=== PATIENT | male | born 1985 | race Hispanic/Latino ===

== ENCOUNTER 2020-03-25 14:18 | Inpatient (IN) | payer MEDICARE ==
--- NOTE | 2020-03-25 15:04 | Emergency Department Report ---
HPI - General Chief Complaint: Altered Mental Status Time Seen by Provider: 03/25/20 14:40 - HPI HPI: This is a 34-year-old male who presents to the emergency department via EMS from [facility] for altered mental status. Patient has a history of schizophrenia and developmental delay. He is currently there involuntarily secondary to auditory hallucinations and self-harm. 1 of the staff members for [facility], who is familiar with this patient, is currently at bedside and says that he does have some history with speech difficulty. However when he first arrived a few days ago the patient was much more conversive, ambulatory an d "he was even doing some push-ups." Since yesterday, and worse today, the patient has essentially been nonverbal and has not been moving much. The patient does answer some of my questions but is very slow to respond. He is currently a poor historian. 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 HENT: Normocephalic. Atraumatic. Patient has moist mucous membranes. EYES: Extraocular motions are intact. Pupils equal reactive to light bilaterally. NECK: Supple. Trachea is midline. CHEST/LUNGS: Clear to auscultation. There is no respiratory distress noted. HEART/CARDIOVASCULAR: Regular. There is mild to moderate tachycardia. There is no murmur. ABDOMEN: Abdomen is soft, nontender. Patient has normal bowel sounds. There is no abdominal distention. SKIN: Skin is warm and dry. NEURO: Patient is awake and follows some commands. He is slow to respond. Withdraws from painful stimuli. MUSCULOSKELETAL: There is no tenderness or deformity. There is no limitation range of motion. ED Course Vital Signs 03/25/20 14:28 Temperature 99.5 F Pulse Rate 120 H Respiratory 16 Rate Blood Pressure 126/75 O2 Sat by Pulse 99 Oximetry - Reevaluation(s) Reevaluation #1: 03/25/20 18:19 Lab Results 03/25/20 03/25/20 03/25/20 Range/Units 15:30 15:30 15:30 WBC 12.0 H (4.5-11.0) K/mm3 RBC 4.71 (3.65-5.03) M/mm3 Hgb 14.2 (11.8-15.2) gm/dl Hct 41.0 (35.5-45.6) % MCV 87 (84-94) fl MCH 30 (28-32) pg MCHC 35 H (32-34) % RDW 12.5 L (13.2-15.2) % Plt Count 174 (140-440) K/mm3 Lymph % (Auto) 11.3 L (13.4-35.0) % [place] % (Auto) 14.7 H (0.0-7.3) % Eos % (Auto) 0.0 (0.0-4.3) % Baso % (Auto) 0.4 (0.0-1.8) % Lymph # 1.4 (1.2-5.4) K/mm3 [place] # 1.8 H (0.0-0.8) K/mm3 Eos # 0.0 (0.0-0.4) K/mm3 Baso # 0.0 (0.0-0.1) K/mm3 Seg Neutrophils % 73.6 H (40.0-70.0) % Seg Neutrophils # 8.8 H (1.8-7.7) K/mm3 Sodium 134 L (137-145) mmol/L Potassium 3.8 (3.6-5.0) mmol/L Chloride 94.8 L (98-107) mmol/L Carbon Dioxide 25 (22-30) mmol/L Anion Gap 18 mmol/L BUN 11 (9-20) mg/dL Creatinine 0.9 (0.8-1.3) mg/dL Estimated GFR > 60 ml/min BUN/Creatinine Ratio 12 % Glucose 105 H (75-100) mg/dL Calcium 9.4 (8.4-10.2) mg/dL Total Bilirubin 0.60 (0.1-1.2) mg/dL AST 141 H (5-40) units/L ALT 47 (7-56) units/L Alkaline Phosphatase 63 (35-129) units/L Ammonia 30.0 (25-60) umol/L Total Creatine Kinase 6716 H (55-170) units/L Total Protein 6.4 (6.3-8.2) g/dL Albumin 4.0 (3.9-5) g/dL Albumin/Globulin Ratio 1.7 % TSH (0.270-4.200) mlU/mL Plasma/Serum Alcohol (0-0.07) % 03/25/20 03/25/20 Range/Units 15:30 15:30 WBC (4.5-11.0) K/mm3 RBC (3.65-5.03) M/mm3 Hgb (11.8-15.2) gm/dl Hct (35.5-45.6) % MCV (84-94) fl MCH (28-32) pg MCHC (32-34) % RDW (13.2-15.2) % Plt Count (140-440) K/mm3 Lymph % (Auto) (13.4-35.0) % [place] % (Auto) (0.0-7.3) % Eos % (Auto) (0.0-4.3) % Baso % (Auto) (0.0-1.8) % Lymph # (1.2-5.4) K/mm3 [place] # (0.0-0.8) K/mm3 Eos # (0.0-0.4) K/mm3 Baso # (0.0-0.1) K/mm3 Seg Neutrophils % (40.0-70.0) % Seg Neutrophils # (1.8-7.7) K/mm3 Sodium (137-145) mmol/L Potassium (3.6-5.0) mmol/L Chloride (98-107) mmol/L Carbon Dioxide (22-30) mmol/L Anion Gap mmol/L BUN (9-20) mg/dL Creatinine (0.8-1.3) mg/dL Estimated GFR ml/min BUN/Creatinine Ratio % Glucose (75-100) mg/dL Calcium (8.4-10.2) mg/dL Total Bilirubin (0.1-1.2) mg/dL AST (5-40) units/L ALT (7-56) units/L Alkaline Phosphatase (35-129) units/L Ammonia (25-60) umol/L Total Creatine Kinase (55-170) units/L Total Protein (6.3-8.2) g/dL Albumin (3.9-5) g/dL Albumin/Globulin Ratio % TSH 2.050 (0.270-4.200) mlU/mL Plasma/Serum Alcohol < 0.01 (0-0.07) % ED Medical Decision Making - Lab Data Result diagrams: 03/25/20 15:30 03/25/20 15:30 - EKG Data -: EKG Interpreted by Me EKG shows normal: sinus rhythm, axis, intervals, QRS complexes, ST-T waves Rate: normal - EKG Data When compared to previous EKG there are: previous EKG unavailable Interpretation: normal EKG - Radiology Data Radiology results: report reviewed CT BRAIN: 03/25/2020 INDICATION / CLINICAL INFORMATION: Altered mental status. COMPARISON: None available. FINDINGS: BRAIN/INTRACRANIAL STRUCTURES: Unenhanced CT images of the brain demonstrate no evidence of acute intracranial abnormality. Ventricles and sulci are normal in size and shape. There is no evidence of hemorrhage or mass. There are no abnormal extra-axial fluid collections. EXTRACRANIAL STRUCTURES: Unremarkable. IMPRESSION: Negative unenhanced CT of the brain. - Medical Decision Making This patient presents to the emergency department from his psychiatric facility for evaluation for decreased responsiveness, decreased oral intake and generalized altered mental status. The patient does respond to some questions and commands. He does answer some questions but is slow to respond. Later in his ED course the patient became more awake and alert and was asking for coffee. A CT scan of the head without contrast was completed that does not show any bleed, large territorial infarct, or any other acute process. EKG does not have any morphology consistent with ST elevation [place] or dysrhythmia. The patient's labs were mostly unremarkable including CBC, metabolic panel, TSH, UDS, urinalysis, but the patient does appear to have rhabdomyolysis with a creatinine kinase level of 6700. He has received a liter of IV fluid and another liter has been ordered. He will be admitted to the hospital for further evaluation and treatment and was accepted for admission by the hospitalist, Dr. Holder. Critical Care Time: No Critical care attestation.: If time is entered above; I have spent that time in minutes in the direct care of this critically ill patient, excluding procedure time. ED Disposition Clinical Impression: History of schizophrenia Rhabdomyolysis Qualifiers: Rhabdomyolysis type: non-traumatic Qualified Code(s): M62.82 - Rhabdomyolysis Altered mental status Qualifiers: Altered mental status type: unspecified Qualified Code(s): R41.82 - Altered mental status, unspecified Disposition: DC-09 OP ADMIT IP TO THIS HOSP Is pt being admited?: Yes Condition: Fair Time of Disposition: 17:47
--- NOTE | 2020-03-25 15:40 | Cat Scan Report ---
CT BRAIN: 03/25/2020 INDICATION / CLINICAL INFORMATION: Altered mental status. COMPARISON: None available. FINDINGS: BRAIN/INTRACRANIAL STRUCTURES: Unenhanced CT images of the brain demonstrate no evidence of acute int racranial abnormality. Ventricles and sulci are normal in size and shape. There is no evidence of hemorrhage or mass. There are no abnormal extra-axial fluid collections. EXTRACRANIAL STRUCTURES: Unremarkable. IMPRESSION: Negative unenhanced CT of the brain. All CT scans at this location are performed using dose reduction to ALARA by means of automated expos ure control. Signer Name: Jonathan Eng MD Signed: 03/25/2020 3:36 PM Workstation Name: [id number]
[2020-03-25] MEDS ORDERED: SODIUM CHLORIDE 0.9% 1000 ML 1,000 ML IV ONE ×2 (15:47→17:37)
[2020-03-25 15:48] LABS: Basophils % (Auto) 0.4 % (0.0-1.8); Hemoglobin 14.2 gm/dl (11.8-15.2); Lymphocytes # (Auto) 1.4 K/mm3 (1.2-5.4); Lymphocytes % (Auto) 11.3 % (13.4-35.0); Mean Corpuscular HGB Conc 35 % (32-34); Mean Corpuscular Volume 87 fl (84-94); Monocytes # (Auto) 1.8 K/mm3 (0.0-0.8); Monocytes % (Auto) 14.7 % (0.0-7.3); Platelet Count 174 K/mm3 (140-440); Red Blood Count 4.71 M/mm3 (3.65-5.03); Red Cell Distribution Width 12.5 % (13.2-15.2)
[2020-03-25 16:12] LABS: Alanine Aminotransferase 47 units/L (7-56); BUN/Creatinine Ratio 12; Blood Urea Nitrogen 11 mg/dL (9-20); Calcium 9.4 mg/dL (8.4-10.2); Hemolysis Index 9
[2020-03-25 17:25] LABS: Bilirubin,Urine NEG (Negative); Blood,Urine MOD (Negative); Color,Urine Yellow (Yellow); Protein,Urine <15 mg/dL mg/dL (Negative); RBC,Urine < 1.0 /HPF (0.0-6.0); Urobilinogen,Urine < 2.0 mg/dL (<2.0)
[2020-03-25] MEDS ORDERED: ONDANSETRON 4 MG/2 ML INJ ONE ×2 (17:27→18:28)
[2020-03-25 17:34] LABS: Amphetamine Screen,Urine Negative; Benzodiazepines Screen,Urine Negative; Cannabinoid Screen,Urine Negative; Cocaine Screen,Urine Negative; Methadone Screen,Urine Negative; Opiate Screen,Urine Negative
[2020-03-25] MEDS ORDERED: SODIUM CHLORIDE 0.9% 1000 ML 1,000 ML ONE (18:06)
[2020-03-25] MEDS ORDERED: MORPHINE 2 MG/1 ML INJ ONE (18:29)
[2020-03-25] MEDS ORDERED: MORPHINE 4 MG/1 ML INJ IV ONE (18:34)
[2020-03-25] MEDS ORDERED: ONDANSETRON 4 MG/2 ML INJ IV ONE (18:34)
[2020-03-25] MEDS ORDERED: NALOXONE 0.4 MG/1 ML INJ IV PRN (18:40)
[2020-03-25] MEDS ORDERED: ACETAMINOPHEN 325 MG TAB PO PRN (18:40)
[2020-03-25] MEDS ORDERED: ALBUTEROL 2.5 MG/3 ML NEBU IH PRN (18:40)
[2020-03-25] MEDS ORDERED: ONDANSETRON 4 MG/2 ML INJ IV PRN ×2 (18:40→18:50)
--- NOTE | 2020-03-25 18:44 | History and Physical Report ---
History of Present Illness Date of examination: 03/25/20 Date of admission: 03/25/20 17:47 Chief complaint: Paranoid schizophrenia rhabdomyolysis History of present illness: Unable to obtain any information from the patient due to paranoia all records obtained from the ED documentation. I also personally called [place] could not get any information from the nurse who kept looking for the records during my duration on the phone with her and will fax additional records over. this is a 34-year-old male who presents to the emergency department via EMS from [facility] for altered mental status. Patient has a history of schizophrenia and developmental delay. He is currently there involuntarily secondary to auditory hallucinations and self-harm. 1 of the staff members for [facility], who is familiar with this patient, is currently at bedside and says that he does have some history with speech difficulty. However when he first arrived a few days ago the patient was much more conversive, ambulatory and "he was even doing some push-ups." Since yesterday, and worse today, the patient has essentially been nonverbal and has not been moving much. The patient does answer some of my questions but is very slow to respond. He is currently a poor historian. 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) Past History Past Medical History: other (Unknown) Past Surgical History: Other (Unknown no surgical scar noted) Social history: full code, other (Psych) Family history: no significant family history Medications and Allergies Allergies Allergy/AdvReac Type Severity Reaction Status Date / Time No Known Allergies Allergy Unverified 03/25/20 14:28 Active Meds: Active Medications Acetaminophen (Tylenol) 650 mg PO Q4H PRN PRN Reason: Pain MILD(1-3)/Fever >100.5/CLEMENT Albuterol (Proventil) 2.5 mg IH Q4HRT PRN PRN Reason: Shortness Of Breath Bisacodyl (Dulcolax) 10 mg [place] QDAY PRN PRN Reason: Constipation unrelieved by MOM Famotidine (Pepcid) 20 mg IV BID LORA Lorazepam (Ativan) 1 mg IV Q4H PRN PRN Reason: Seizures Naloxone HCl (Naloxone) 0.1 mg IV Q2MIN PRN PRN Reason: Res Rate </= 8 or 02 SAT < 92% Ondansetron HCl (Zofran) 4 mg IV Q8H PRN PRN Reason: Nausea And Vomiting Senna (Senokot) 8.6 mg PO Q12HR LORA Sodium Chloride (Sodium Chloride Flush Syringe 10 Ml) 10 ml IV BID LORA Sodium Chloride (Sodium Chloride Flush Syringe 10 Ml) 10 ml IV PRN PRN PRN Reason: LINE FLUSH Review of Systems ROS unobtainable: due to mental status Exam - Physical Exam Narrative exam: VITAL SIGNS: Reviewed. GENERAL: The patient appears normally developed, diaphoretic, rigid, answers a few questions but disoriented vital signs as documented. HEAD: No signs of head trauma. EYES: Pupils are equal. Extraocular motions intact. EARS: Hearing grossly intact. MOUTH: Oropharynx is normal. NECK: No adenopathy, no JVD. CHEST: Chest with clear breath sounds bilaterally. No wheezes, rales, or rhonchi. CARDIAC: Regular rate and rhythm. S1 and S2, without murmurs, gallops, or rubs. VASCULAR: No Edema. Peripheral pulses normal and equal in all extremities. ABDOMEN: Soft, non tender and non distended. No rebound or guarding, and no masses palpated. Bowel Sounds normal. MUSCULOSKELETAL: Good range of motion of all major joints. Extremities without clubbing, cyanosis or edema. NEUROLOGIC EXAM: Awake disoriented although holds both hands in a rigid state is able to move them without much rigidity noted. Speech is garbled.. PSYCHIATRIC: Mood normal. SKIN: detail exam as documented in skin assessment - Constitutional Vitals: Temp Pulse Resp BP Pulse Ox 99.5 F 84 18 106/62 98 03/25/20 14:28 03/25/20 16:45 03/25/20 18:35 03/25/20 16:45 03/25/20 16:45 Results - Labs CBC & Chem 7: 03/25/20 15:30 03/25/20 15:30 Labs: Laboratory Last Values WBC 12.0 K/mm3 (4.5-11.0) H 03/25/20 15:30 RBC 4.71 M/mm3 (3.65-5.03) 03/25/20 15:30 Hgb 14.2 gm/dl (11.8-15.2) 03/25/20 15:30 Hct 41.0 % (35.5-45.6) 03/25/20 15:30 MCV 87 fl (84-94) 03/25/20 15:30 MCH 30 pg (28-32) 03/25/20 15:30 MCHC 35 % (32-34) H 03/25/20 15:30 RDW 12.5 % (13.2-15.2) L 03/25/20 15:30 Plt Count 174 K/mm3 (140-440) 03/25/20 15:30 Lymph % (Auto) 11.3 % (13.4-35.0) L 03/25/20 15:30 [place] % (Auto) 14.7 % (0.0-7.3) H 03/25/20 15:30 Eos % (Auto) 0.0 % (0.0-4.3) 03/25/20 15:30 Baso % (Auto) 0.4 % (0.0-1.8) 03/25/20 15:30 Lymph # 1.4 K/mm3 (1.2-5.4) 03/25/20 15:30 [place] # 1.8 K/mm3 (0.0-0.8) H 03/25/20 15:30 Eos # 0.0 K/mm3 (0.0-0.4) 03/25/20 15:30 Baso # 0.0 K/mm3 (0.0-0.1) 03/25/20 15:30 Seg Neutrophils % 73.6 % (40.0-70.0) H 03/25/20 15:30 Seg Neutrophils # 8.8 K/mm3 (1.8-7.7) H 03/25/20 15:30 Sodium 134 mmol/L (137-145) L 03/25/20 15:30 Potassium 3.8 mmol/L (3.6-5.0) 03/25/20 15:30 Chloride 94.8 mmol/L (98-107) L 03/25/20 15:30 Carbon Dioxide 25 mmol/L (22-30) 03/25/20 15:30 Anion Gap 18 mmol/L 03/25/20 15:30 BUN 11 mg/dL (9-20) 03/25/20 15:30 Creatinine 0.9 mg/dL (0.8-1.3) 03/25/20 15:30 Estimated GFR > 60 ml/min 03/25/20 15:30 BUN/Creatinine Ratio 12 % 03/25/20 15:30 Glucose 105 mg/dL (75-100) H 03/25/20 15:30 Calcium 9.4 mg/dL (8.4-10.2) 03/25/20 15:30 Total Bilirubin 0.60 mg/dL (0.1-1.2) 03/25/20 15:30 AST 141 units/L (5-40) H 03/25/20 15:30 ALT 47 units/L (7-56) 03/25/20 15:30 Alkaline Phosphatase 63 units/L (35-129) 03/25/20 15:30 Ammonia 30.0 umol/L (25-60) 03/25/20 15:30 Total Creatine Kinase 6716 units/L (55-170) H 03/25/20 15:30 Total Protein 6.4 g/dL (6.3-8.2) 03/25/20 15:30 Albumin 4.0 g/dL (3.9-5) 03/25/20 15:30 Albumin/Globulin Ratio 1.7 % 03/25/20 15:30 TSH 2.050 mlU/mL (0.270-4.200) 03/25/20 15:30 Urine Color Yellow (Yellow) 03/25/20 Unknown Urine Turbidity Clear (Clear) 03/25/20 Unknown Urine pH 6.0 (5.0-7.0) 03/25/20 Unknown Ur Specific [place] 1.009 (1.003-1.030) 03/25/20 Unknown Urine Protein <15 mg/dl mg/dL (Negative) 03/25/20 Unknown Urine Glucose (UA) Neg mg/dL (Negative) 03/25/20 Unknown Urine Ketones 20 mg/dL (Negative) 03/25/20 Unknown Urine Blood Mod (Negative) 03/25/20 Unknown Urine Nitrite Neg (Negative) 03/25/20 Unknown Urine Bilirubin Neg (Negative) 03/25/20 Unknown Urine Urobilinogen < 2.0 mg/dL (<2.0) 03/25/20 Unknown Ur Leukocyte Esterase Neg (Negative) 03/25/20 Unknown Urine WBC (Auto) 1.0 /HPF (0.0-6.0) 03/25/20 Unknown Urine RBC (Auto) < 1.0 /HPF (0.0-6.0) 03/25/20 Unknown U Epithel Cells (Auto) < 1.0 /HPF (0-13.0) 03/25/20 Unknown Urine Opiates Screen Negative 03/25/20 Unknown Urine Methadone Screen Negative 03/25/20 Unknown Ur Barbiturates Screen Negative 03/25/20 Unknown Ur Phencyclidine Scrn Negative 03/25/20 Unknown Ur Amphetamines Screen Negative 03/25/20 Unknown U Benzodiazepines Scrn Negative 03/25/20 Unknown Urine Cocaine Screen Negative 03/25/20 Unknown U Marijuana (THC) Screen Negative 03/25/20 Unknown Drugs of Abuse Note Disclamer 03/25/20 Unknown Plasma/Serum Alcohol < 0.01 % (0-0.07) 03/25/20 15:30 Hardy/IV: IV Catheter Type [Left Hand] INT / Saline Lock Assessment and Plan Assessment and plan: 34-year-old male who presents to the emergency department via EMS from [facility] for altered mental status. Patient has a history of schizophrenia and developmental delay. He is currently there involuntarily s econdary to auditory hallucinations and self-harm. 1 of the staff members for [facility], who is familiar with this patient, is currently at bedside and says that he does have some history with speech difficulty. However when he first arrived a few days ago the patient was much more conversive, ambulatory and "he was even doing some push-ups." Since yesterday, and worse today, the patient has essentially been nonverbal and has not been moving much. The patient does answer some of my questions but is very slow to respond. He is currently a poor historian. CT head iMPRESSION: Negative unenhanced CT of the brain Rhabdomyolysis acute Acute metabolic encephalopathy Schizophrenia with paranoia Acute psychosis with hallucination 1013 Plan Admit to MedSurg and observation Psych consult Aggressive resuscitation with fluids Resume appropriate medications from psych facility when available Monitor for any development of rigidity as this may be a sign of neuroleptic malignant syndrome Review of meds from outside sources did not show any recent use of any medication that could be serotonin inducing. Monitor temperature and vital signs every 4 hours. DVT and GI prophylaxis Advance Directives: Yes Plan of care discussed with patient/family: Yes
[2020-03-25] MEDS: ZIPRASIDONE MESYLATE 20 MG VIAL IM PRN (20:00)
[2020-03-25] MEDS: FAMOTIDINE 20 MG/2 ML INJ IV SCH (21:50)
[2020-03-25] MEDS: SENNOSIDES 8.6 MG TAB PO SCH (21:51)
[2020-03-25] MEDS: LORazepam 2 MG/ML VIAL IV PRN (23:23)
[2020-03-26] MEDS: ZIPRASIDONE MESYLATE 20 MG VIAL IM PRN (02:16)
[2020-03-26] MEDS: LORazepam 2 MG/ML VIAL IV PRN (05:40)
[2020-03-26 05:55] LABS: Basophils % (Auto) 0.1 % (0.0-1.8); Hematocrit 38.9 % (35.5-45.6); Hemoglobin 13.6 gm/dl (11.8-15.2); Lymphocytes # (Auto) 1.2 K/mm3 (1.2-5.4); Lymphocytes % (Auto) 14.9 % (13.4-35.0); Mean Corpuscular HGB Conc 35 % (32-34); Mean Corpuscular Volume 88 fl (84-94); Monocytes % (Auto) 12.3 % (0.0-7.3); Platelet Count 152 K/mm3 (140-440); Red Blood Count 4.44 M/mm3 (3.65-5.03); Red Cell Distribution Width 12.9 % (13.2-15.2)
[2020-03-26 06:21] LABS: BUN/Creatinine Ratio 13; Blood Urea Nitrogen 10 mg/dL (9-20); Calcium 9.2 mg/dL (8.4-10.2); Hemolysis Index 4
[2020-03-26] MEDS ORDERED: SODIUM CHLORIDE 0.9% 1000 ML 1,000 ML IV SCH (09:00)
[2020-03-26] MEDS: SENNOSIDES 8.6 MG TAB PO SCH ×2 (09:46→21:23)
[2020-03-26] MEDS: FAMOTIDINE 20 MG/2 ML INJ IV SCH ×2 (09:46→21:23)
--- NOTE | 2020-03-26 10:35 | Progress Note ---
Assessment and Plan Assessment and plan: 34-year-old male who presents to the emergency department via EMS from [facility] for altered mental status. Patient has a history of schizophrenia and developmental delay. He is currently there involuntarily secondary to auditory hallucinations and self-harm. 1 of the staff members for [facility], who is familiar with this patient, is currently at bedside and says that he does have some history with speech difficulty. However when he first arrived a few days ago the patient was much more conversive, ambulatory and "he was even doing some push-ups." Since yesterday, and worse today, the patient has essentially been nonverbal and has not been moving much. The patient does answer some of my questions but is very slow to respond. He is currently a poor historian. CT head iMPRESSION: Negative unenhanced CT of the brain Rhabdomyolysis acute Acute metabolic encephalopathy Schizophrenia with paranoia Acute psychosis with hallucination 1013 Plan Continue Supportive care Start IV fluids at 150cc/h Normal saline Continue 1013 Recheck CPK Psych consult Aggressive resuscitation with fluids Resume appropriate medications from psych facility when available Monitor temperature and vital signs every 4 hours. DVT and GI prophylaxis Anticipate discharge tomorrow. History Interval history: Patient seen and examined this morning continues to yell excessively. No new complaints reported by nursing staff sitter at bedside. Hospitalist Physical - Physical exam Narrative exam: VITAL SIGNS: Reviewed. GENERAL: The patient appears normally developed, more relaxed today., answers a few questions but disoriented vital signs as documented. HEAD: No signs of head trauma. EYES: Pupils are equal. Extraocular motions intact. EARS: Hearing grossly intact. MOUTH: Oropharynx is normal. NECK: No adenopathy, no JVD. CHEST: Chest with clear breath sounds bilaterally. No wheezes, rales, or rhonchi. CARDIAC: Regular rate and rhythm. S1 and S2, without murmurs, gallops, or rubs. VASCULAR: No Edema. Peripheral pulses normal and equal in all extremities. ABDOMEN: Soft, non tender and non distended. No rebound or guarding, and no masses palpated. Bowel Sounds normal. MUSCULOSKELETAL: Good range of motion of all major joints. Extremities without clubbing, cyanosis or edema. NEUROLOGIC EXAM: Awake disoriented. Speech remains garbled. PSYCHIATRIC: Mood normal. SKIN: detail exam as documented in skin assessment - Constitutional Vitals: Temp Pulse Resp BP Pulse Ox 98.9 F 76 16 105/59 96 03/25/20 21:15 03/25/20 21:15 03/25/20 21:15 03/25/20 21:15 03/25/20 21:15 Results - Labs CBC & Chem 7: 03/26/20 04:17 03/26/20 04:17 Labs: Laboratory Last Values WBC 8.2 K/mm3 (4.5-11.0) 03/26/20 04:17 RBC 4.44 M/mm3 (3.65-5.03) 03/26/20 04:17 Hgb 13.6 gm/dl (11.8-15.2) 03/26/20 04:17 Hct 38.9 % (35.5-45.6) 03/26/20 04:17 MCV 88 fl (84-94) 03/26/20 04:17 MCH 31 pg (28-32) 03/26/20 04:17 MCHC 35 % (32-34) H 03/26/20 04:17 RDW 12.9 % (13.2-15.2) L 03/26/20 04:17 Plt Count 152 K/mm3 (140-440) 03/26/20 04:17 Lymph % (Auto) 14.9 % (13.4-35.0) 03/26/20 04:17 [place] % (Auto) 12.3 % (0.0-7.3) H 03/26/20 04:17 Eos % (Auto) 0.0 % (0.0-4.3) 03/26/20 04:17 Baso % (Auto) 0.1 % (0.0-1.8) 03/26/20 04:17 Lymph # 1.2 K/mm3 (1.2-5.4) 03/26/20 04:17 [place] # 1.0 K/mm3 (0.0-0.8) H 03/26/20 04:17 Eos # 0.0 K/mm3 (0.0-0.4) 03/26/20 04:17 Baso # 0.0 K/mm3 (0.0-0.1) 03/26/20 04:17 Seg Neutrophils % 72.7 % (40.0-70.0) H 03/26/20 04:17 Seg Neutrophils # 5.9 K/mm3 (1.8-7.7) 03/26/20 04:17 Sodium 140 mmol/L (137-145) 03/26/20 04:17 Potassium 3.8 mmol/L (3.6-5.0) 03/26/20 04:17 Chloride 101.4 mmol/L (98-107) 03/26/20 04:17 Carbon Dioxide 25 mmol/L (22-30) 03/26/20 04:17 Anion Gap 17 mmol/L 03/26/20 04:17 BUN 10 mg/dL (9-20) 03/26/20 04:17 Creatinine 0.8 mg/dL (0.8-1.3) 03/26/20 04:17 Estimated GFR > 60 ml/min 03/26/20 04:17 BUN/Creatinine Ratio 13 % 03/26/20 04:17 Glucose 81 mg/dL (75-100) 03/26/20 04:17 Calcium 9.2 mg/dL (8.4-10.2) 03/26/20 04:17 Total Bilirubin 0.60 mg/dL (0.1-1.2) 03/25/20 15:30 AST 141 units/L (5-40) H 03/25/20 15:30 ALT 47 units/L (7-56) 03/25/20 15:30 Alkaline Phosphatase 63 units/L (35-129) 03/25/20 15:30 Ammonia 30.0 umol/L (25-60) 03/25/20 15:30 Total Creatine Kinase 7036 units/L (55-170) H 03/26/20 04:17 Total Protein 6.4 g/dL (6.3-8.2) 03/25/20 15:30 Albumin 4.0 g/dL (3.9-5) 03/25/20 15:30 Albumin/Globulin Ratio 1.7 % 03/25/20 15:30 TSH 2.050 mlU/mL (0.270-4.200) 03/25/20 15:30 Urine Color Yellow (Yellow) 03/25/20 Unknown Urine Turbidity Clear (Clear) 03/25/20 Unknown Urine pH 6.0 (5.0-7.0) 03/25/20 Unknown Ur Specific [place] 1.009 (1.003-1.030) 03/25/20 Unknown Urine Protein <15 mg/dl mg/dL (Negative) 03/25/20 Unknown Urine Glucose (UA) Neg mg/dL (Negative) 03/25/20 Unknown Urine Ketones 20 mg/dL (Negative) 03/25/20 Unknown Urine Blood Mod (Negative) 03/25/20 Unknown Urine Nitrite Neg (Negative) 03/25/20 Unknown Urine Bilirubin Neg (Negative) 03/25/20 Unknown Urine Urobilinogen < 2.0 mg/dL (<2.0) 03/25/20 Unknown Ur Leukocyte Esterase Neg (Negative) 03/25/20 Unknown Urine WBC (Auto) 1.0 /HPF (0.0-6.0) 03/25/20 Unknown Urine RBC (Auto) < 1.0 /HPF (0.0-6.0) 03/25/20 Unknown U Epithel Cells (Auto) < 1.0 /HPF (0-13.0) 03/25/20 Unknown Urine Opiates Screen Negative 03/25/20 Unknown Urine Methadone Screen Negative 03/25/20 Unknown Ur Barbiturates Screen Negative 03/25/20 Unknown Ur Phencyclidine Scrn Negative 03/25/20 Unknown Ur Amphetamines Screen Negative 03/25/20 Unknown U Benzodiazepines Scrn Negative 03/25/20 Unknown Urine Cocaine Screen Negative 03/25/20 Unknown U Marijuana (THC) Screen Negative 03/25/20 Unknown Drugs of Abuse Note Disclamer 03/25/20 Unknown Plasma/Serum Alcohol < 0.01 % (0-0.07) 03/25/20 15:30 Hardy/IV: Voiding Method Urinal IV Catheter Type [Left Hand] INT / Saline Lock Active Medications - Current Medications Current Medications: Generic Name Dose Route Start Last Admin Trade Name Freq PRN Reason Stop Dose Admin Acetaminophen 650 mg 03/25/20 18:40 Tylenol PO Q4H PRN Pain MILD(1-3)/Fever >100.5/CLEMENT Albuterol 2.5 mg 03/25/20 18:40 Proventil IH Q4HRT PRN Shortness Of Breath Bisacodyl 10 mg 03/25/20 18:40 Dulcolax [place] QDAY PRN Constipation unrelieved by MOM Famotidine 20 mg 03/25/20 22:00 03/26/20 09:46 Pepcid IV 20 mg BID LORA Administration Sodium Chloride 1,000 mls @ 150 mls/hr 03/26/20 09:00 Nacl 0.9% 1000 Ml IV DIRECT LORA Lorazepam 1 mg 03/25/20 18:43 03/26/20 05:40 Ativan IV 1 mg Q4H PRN Administration Seizures Naloxone HCl 0.1 mg 03/25/20 18:40 Naloxone IV Q2MIN PRN Res Rate </= 8 or 02 SAT < 92% Ondansetron HCl 4 mg 03/25/20 18:50 Zofran IV Q4H PRN Nausea And Vomiting Senna 8.6 mg 03/25/20 22:00 03/26/20 09:46 Senokot PO 8.6 mg Q12HR LORA Administration Sodium Chloride 10 ml 03/25/20 22:00 03/26/20 09:46 Sodium Chloride Flush Syringe 10 Ml IV 10 ml BID LORA Administration Sodium Chloride 10 ml 03/25/20 18:40 Sodium Chloride Flush Syringe 10 Ml IV PRN PRN LINE FLUSH
[2020-03-26] MEDS: SODIUM CHLORIDE 0.9% 1000 ML 1,000 ML IV SCH ×3 (11:30→23:56)
--- NOTE | 2020-03-26 11:42 | Consultation ---
History of Present Illness - Reason for Consult Consult date: 03/26/20 Reason for consult: paranoia - Chief Complaint Chief complaint: Paranoid schizophrenia rhabdomyolysis - History of Present Psychiatric Illness Heriberto Barney is a 34y/o male patient who presented to the emergency department via EMS from [facility] for altered mental status, according to medical record. During my interview with the patient today, he is sitting up in bed, awake. A sitter is at bedside. Upon entering the room, the patient has his right hand raised and making incomprehensible sounds. His speech is slurred and difficult to understand. He is slow to respond. His right leg shakes continuously. He at first seems reluctant to speak. The sitter hears me trying to get the patient to talk and he states, "just talk to her one time. She needs to talk to you." The patient then was able to tell me he was at the hospital. He also verbalized the month and year but did not know the date. He verbalized being "depressed." The patient says he "hears voices telling me to stab yourself. Stab yourself." The patient says he was diagnoses with "psychopathic schizophrenia." He says he takes "depakote, klonopin, and provigil." The patient denies any illicit drug use, alcohol or nicotine. PAST PSYCHIATRIC HISTORY: Diagnoses: "psychopathic schizophrenia" Suicide attempts or Self-harm behavior: Yes Prior psychiatric hospitalizations: Yes Substance Abuse history: Denies Previous psychiatric medications tried: "depakote, Klonopin and provigil" Outpatient treatment: No PAST MEDICAL HISTORY: None reported Family Psychiatric History: None reported or documented SOCIAL HISTORY Marital Status: Single Living Arrangements: with family Employment Status: Disabled Access to guns/weapons: Denies Education: History of Abuse: Denies Legal History: Denies MSE Appearance: Wearing appropriate clothing. Behavior: Appears anxious Mood: "depressed" Affect: Congruent with stated mood Thought Process: Goal directed Speech: slurred, difficult to understand, slow pace Thought Content Suicidal: Yes Homicidal: Denies Hallucinations: Auditory Delusions: none elicited Consciousness: alert. Cognition/Memory: Impaired Insight/Judgment: Limited. Diagnoses: Schizophrenia Treatment Plan Start Abilify 5mg po daily Start Depakote 125mg po BID Start Trazodone 50mg po qhs Start Klonopin 0.25mgpo BID Start melatonin 5mg po qhs prn insomnia Sitter: Defer to primary Medical: Per primary Disposition: Recommend acute inpatient psychiatric treatment Will follow. Thank you for this consult. Medications and Allergies Allergies Allergy/AdvReac Type Severity Reaction Status Date / Time No Known Allergies Allergy Unverified 03/25/20 14:28 Home Medications Medication Instructions Recorded Confirmed Last Taken Type No Known Home Medications [No 03/26/20 03/26/20 Unknown History Reported Home Medications] Active Meds: Active Medications Acetaminophen (Tylenol) 650 mg PO Q4H PRN PRN Reason: Pain MILD(1-3)/Fever >100.5/CLEMENT Albuterol (Proventil) 2.5 mg IH Q4HRT PRN PRN Reason: Shortness Of Breath Bisacodyl (Dulcolax) 10 mg [place] QDAY PRN PRN Reason: Constipation unrelieved by MOM Famotidine (Pepcid) 20 mg IV BID [facility] Last Admin: 03/26/20 09:46 Dose: 20 mg Documented by: Sodium Chloride (Nacl 0.9% 1000 Ml) 1,000 mls @ 150 mls/hr IV DIRECT LORA Sodium Chloride (Nacl 0.9% 1000 Ml) 1,000 mls @ 150 mls/hr IV DIRECT LORA Lorazepam (Ativan) 1 mg IV Q4H PRN PRN Reason: Seizures Last Admin: 03/26/20 05:40 Dose: 1 mg Documented by: Naloxone HCl (Naloxone) 0.1 mg IV Q2MIN PRN PRN Reason: Res Rate </= 8 or 02 SAT < 92% Ondansetron HCl (Zofran) 4 mg IV Q4H PRN PRN Reason: Nausea And Vomiting Senna (Senokot) 8.6 mg PO Q12HR [facility] Last Admin: 03/26/20 09:46 Dose: 8.6 mg Documented by: Sodium Chloride (Sodium Chloride Flush Syringe 10 Ml) 10 ml IV BID [facility] Last Admin: 03/26/20 09:46 Dose: 10 ml Documented by: Sodium Chloride (Sodium Chloride Flush Syringe 10 Ml) 10 ml IV PRN PRN PRN Reason: LINE FLUSH Mental Status Exam - Vital signs Last Vital Signs Temp 98.9 F 03/25/20 21:15 Pulse 76 03/25/20 21:15 Resp 16 03/25/20 21:15 BP 105/59 03/25/20 21:15 Pulse Ox 96 03/25/20 21:15 Results Result Diagrams: 03/26/20 04:17 03/26/20 04:17 Abnormal lab results 03/25/20 03/25/20 03/26/20 Range/Units 15:30 15:30 04:17 WBC 12.0 H (4.5-11.0) K/mm3 MCHC 35 H 35 H (32-34) % RDW 12.5 L 12.9 L (13.2-15.2) % Lymph % (Auto) 11.3 L (13.4-35.0) % [place] % (Auto) 14.7 H 12.3 H (0.0-7.3) % [place] # 1.8 H 1.0 H (0.0-0.8) K/mm3 Seg Neutrophils % 73.6 H 72.7 H (40.0-70.0) % Seg Neutrophils # 8.8 H (1.8-7.7) K/mm3 Sodium 134 L (137-145) mmol/L Chloride 94.8 L (98-107) mmol/L Glucose 105 H (75-100) mg/dL AST 141 H (5-40) units/L Total Creatine Kinase 6716 H (55-170) units/L 03/26/20 Range/Units 04:17 WBC (4.5-11.0) K/mm3 MCHC (32-34) % RDW (13.2-15.2) % Lymph % (Auto) (13.4-35.0) % [place] % (Auto) (0.0-7.3) % [place] # (0.0-0.8) K/mm3 Seg Neutrophils % (40.0-70.0) % Seg Neutrophils # (1.8-7.7) K/mm3 Sodium (137-145) mmol/L Chloride (98-107) mmol/L Glucose (75-100) mg/dL AST (5-40) units/L Total Creatine Kinase 7036 H (55-170) units/L All other labs normal.
[2020-03-26] MEDS ORDERED: MELATONIN 5 MG TAB PO PRN (12:06)
[2020-03-26] MEDS: ARIPiprazole 5 MG TAB PO SCH (13:00)
[2020-03-26] MEDS: clonazePAM 0.5 MG TAB PO SCH ×2 (13:00→21:23)
[2020-03-26] MEDS ORDERED: DIVALPROEX DR 250 MG TAB PO SCH (13:00)
[2020-03-26] MEDS: DIVALPROEX DR 125 MG TAB PO SCH ×2 (13:00→21:23)
[2020-03-26] MEDS: traZODone 50 MG TAB PO SCH (21:23)
[2020-03-27] MEDS: SODIUM CHLORIDE 0.9% 1000 ML 1,000 ML IV SCH ×2 (06:30→12:49)
--- NOTE | 2020-03-27 08:16 | Progress Note ---
Assessment and Plan Assessment and plan: 34-year-old male who presents to the emergency department via EMS from [facility] for altered mental status. Patient has a history of schizophrenia and developmental delay. He is currently there involuntarily secondary to auditory hallucinations and self-harm. 1 of the staff members for [facility], who is familiar with this patient, is currently at bedside and says that he does have some history with speech difficulty. However when he first arrived a few days ago the patient was much more conversive, ambulatory and "he was even doing some push-ups." Since yesterday, and worse today, the patient has essentially been nonverbal and has not been moving much. The patient does answer some of my questions but is very slow to respond. He is currently a poor historian. CT head iMPRESSION: Negative unenhanced CT of the brain Rhabdomyolysis acute Acute metabolic encephalopathy Schizophrenia with paranoia Acute psychosis with hallucination 1013 Plan Continue Supportive care CPK improved Patient is medically cleared for inpatient psych placement. Decrease NS 75m/hr Continue 1013 Recheck CPK Psych consult NOTED Aggressive resuscitation with fluids DVT and GI prophylaxis Anticipate discharge tomorrow. History Interval history: Patient seen and examined this morning continues to yell excessively. No new complaints reported by nursing staff sitter at bedside. Hospitalist Physical - Physical exam Narrative exam: VITAL SIGNS: Reviewed. GENERAL: The patient appears normally developed, more relaxed today., answers a few questions but disoriented vital signs as documented. HEAD: No signs of head trauma. EYES: Pupils are equal. Extraocular motions intact. EARS: Hearing grossly intact. MOUTH: Oropharynx is normal. NECK: No adenopathy, no JVD. CHEST: Chest with clear breath sounds bilaterally. No wheezes, rales, or rhonchi. CARDIAC: Regular rate and rhythm. S1 and S2, without murmurs, gallops, or rubs. VASCULAR: No Edema. Peripheral pulses normal and equal in all extremities. ABDOMEN: Soft, non tender and non distended. No rebound or guarding, and no masses palpated. Bowel Sounds normal. MUSCULOSKELETAL: Good range of motion of all major joints. Extremities without clubbing, cyanosis or edema. NEUROLOGIC EXAM: Awake disoriented. Speech remains garbled. PSYCHIATRIC: Mood normal. SKIN: detail exam as documented in skin assessment - Constitutional Vitals: Temp Pulse Resp BP Pulse Ox 98.2 F 72 17 113/52 94 08/30/20 04:38 03/27/20 04:38 03/27/20 04:38 03/27/20 04:38 03/27/20 04:38 Results - Labs CBC & Chem 7: 03/26/20 04:17 03/26/20 04:17 Labs: Laboratory Last Values WBC 8.2 K/mm3 (4.5-11.0) 03/26/20 04:17 RBC 4.44 M/mm3 (3.65-5.03) 03/26/20 04:17 Hgb 13.6 gm/dl (11.8-15.2) 03/26/20 04:17 Hct 38.9 % (35.5-45.6) 03/26/20 04:17 MCV 88 fl (84-94) 03/26/20 04:17 MCH 31 pg (28-32) 03/26/20 04:17 MCHC 35 % (32-34) H 03/26/20 04:17 RDW 12.9 % (13.2-15.2) L 03/26/20 04:17 Plt Count 152 K/mm3 (140-440) 03/26/20 04:17 Lymph % (Auto) 14.9 % (13.4-35.0) 03/26/20 04:17 [place] % (Auto) 12.3 % (0.0-7.3) H 03/26/20 04:17 Eos % (Auto) 0.0 % (0.0-4.3) 03/26/20 04:17 Baso % (Auto) 0.1 % (0.0-1.8) 03/26/20 04:17 Lymph # 1.2 K/mm3 (1.2-5.4) 03/26/20 04:17 [place] # 1.0 K/mm3 (0.0-0.8) H 03/26/20 04:17 Eos # 0.0 K/mm3 (0.0-0.4) 03/26/20 04:17 Baso # 0.0 K/mm3 (0.0-0.1) 03/26/20 04:17 Seg Neutrophils % 72.7 % (40.0-70.0) H 03/26/20 04:17 Seg Neutrophils # 5.9 K/mm3 (1.8-7.7) 03/26/20 04:17 Sodium 140 mmol/L (137-145) 03/26/20 04:17 Potassium 3.8 mmol/L (3.6-5.0) 03/26/20 04:17 Chloride 101.4 mmol/L (98-107) 03/26/20 04:17 Carbon Dioxide 25 mmol/L (22-30) 03/26/20 04:17 Anion Gap 17 mmol/L 03/26/20 04:17 BUN 10 mg/dL (9-20) 03/26/20 04:17 Creatinine 0.8 mg/dL (0.8-1.3) 03/26/20 04:17 Estimated GFR > 60 ml/min 03/26/20 04:17 BUN/Creatinine Ratio 13 % 03/26/20 04:17 Glucose 81 mg/dL (75-100) 03/26/20 04:17 Calcium 9.2 mg/dL (8.4-10.2) 03/26/20 04:17 Total Bilirubin 0.60 mg/dL (0.1-1.2) 03/25/20 15:30 AST 141 units/L (5-40) H 03/25/20 15:30 ALT 47 units/L (7-56) 03/25/20 15:30 Alkaline Phosphatase 63 units/L (35-129) 03/25/20 15:30 Ammonia 30.0 umol/L (25-60) 03/25/20 15:30 Total Creatine Kinase 2580 units/L (55-170) H 03/27/20 05:17 Total Protein 6.4 g/dL (6.3-8.2) 03/25/20 15:30 Albumin 4.0 g/dL (3.9-5) 03/25/20 15:30 Albumin/Globulin Ratio 1.7 % 03/25/20 15:30 TSH 2.050 mlU/mL (0.270-4.200) 03/25/20 15:30 Urine Color Yellow (Yellow) 03/25/20 Unknown Urine Turbidity Clear (Clear) 03/25/20 Unknown Urine pH 6.0 (5.0-7.0) 03/25/20 Unknown Ur Specific [place] 1.009 (1.003-1.030) 03/25/20 Unknown Urine Protein <15 mg/dl mg/dL (Negative) 03/25/20 Unknown Urine Glucose (UA) Neg mg/dL (Negative) 03/25/20 Unknown Urine Ketones 20 mg/dL (Negative) 03/25/20 Unknown Urine Blood Mod (Negative) 03/25/20 Unknown Urine Nitrite Neg (Negative) 03/25/20 Unknown Urine Bilirubin Neg (Negative) 03/25/20 Unknown Urine Urobilinogen < 2.0 mg/dL (<2.0) 03/25/20 Unknown Ur Leukocyte Esterase Neg (Negative) 03/25/20 Unknown Urine WBC (Auto) 1.0 /HPF (0.0-6.0) 03/25/20 Unknown Urine RBC (Auto) < 1.0 /HPF (0.0-6.0) 03/25/20 Unknown U Epithel Cells (Auto) < 1.0 /HPF (0-13.0) 03/25/20 Unknown Urine Opiates Screen Negative 03/25/20 Unknown Urine Methadone Screen Negative 03/25/20 Unknown Ur Barbiturates Screen Negative 03/25/20 Unknown Ur Phencyclidine Scrn Negative 03/25/20 Unknown Ur Amphetamines Screen Negative 03/25/20 Unknown U Benzodiazepines Scrn Negative 03/25/20 Unknown Urine Cocaine Screen Negative 03/25/20 Unknown U Marijuana (THC) Screen Negative 03/25/20 Unknown Drugs of Abuse Note Disclamer 03/25/20 Unknown Plasma/Serum Alcohol < 0.01 % (0-0.07) 03/25/20 15:30 Hardy/IV: Voiding Method Incontinent IV Catheter Type [Left Hand] INT / Saline Lock Active Medications - Current Medications Current Medications: Generic Name Dose Route Start Last Admin Trade Name Freq PRN Reason Stop Dose Admin Acetaminophen 650 mg 03/25/20 18:40 Tylenol PO Q4H PRN Pain MILD(1-3)/Fever >100.5/CLEMENT Albuterol 2.5 mg 03/25/20 18:40 Proventil IH Q4HRT PRN Shortness Of Breath Aripiprazole 5 mg 03/26/20 13:00 03/26/20 13:00 Aripiprazole PO 5 mg QDAY LORA Administration Bisacodyl 10 mg 03/25/20 18:40 Dulcolax [place] QDAY PRN Constipation unrelieved by MOM Clonazepam 0.25 mg 03/26/20 13:00 03/26/20 21:23 Klonopin PO 0.25 mg BID LORA Administration Divalproex Sodium 125 mg 03/26/20 13:00 03/26/20 21:[address] PO 125 mg BID LORA Administration Famotidine 20 mg 03/25/20 22:00 03/26/20 21:23 Pepcid IV 20 mg BID LORA Administration Sodium Chloride 1,000 mls @ 150 mls/hr 03/26/20 11:30 03/27/20 06:30 Nacl 0.9% 1000 Ml IV 150 mls/hr DIRECT LORA Administration Lorazepam 1 mg 03/25/20 18:43 03/26/20 05:40 Ativan IV 1 mg Q4H PRN Administration Seizures Melatonin 5 mg 03/26/20 12:06 Melatonin PO QHS PRN Sleep Naloxone HCl 0.1 mg 03/25/20 18:40 Naloxone IV Q2MIN PRN Res Rate </= 8 or 02 SAT < 92% Ondansetron HCl 4 mg 03/25/20 18:50 Zofran IV Q4H PRN Nausea And Vomiting Senna 8.6 mg 03/25/20 22:00 03/26/20 21:23 Senokot PO 8.6 mg Q12HR LORA Administration Sodium Chloride 10 ml 03/25/20 22:00 03/26/20 21:23 Sodium Chloride Flush Syringe 10 Ml IV 10 ml BID LORA Administration Sodium Chloride 10 ml 03/25/20 18:40 Sodium Chloride Flush Syringe 10 Ml IV PRN PRN LINE FLUSH Trazodone HCl 50 mg 03/26/20 22:00 03/26/20 21:23 Desyrel PO 50 mg QHS LORA Administration
--- NOTE | 2020-03-27 08:18 | Discharge Summary ---
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 Patient has a history of schizophrenia and developmental delay. He is currently there involuntarily secondary to auditory hallucinations and self-harm. 1 of the staff members for [facility], who is familiar with this patient, is currently at bedside and says that he does have some history with speech difficulty. However when he first arrived a few days ago the patient was much more conversive, ambulatory and "he was even doing some push-ups." Since yesterday, and worse today, the patient has essentially been nonverbal and has not been moving much. The patient does answer some of my questions but is very slow to respond. He is currently a poor historian. CT head iMPRESSION: Negative unenhanced CT of the brain Patient was treated with aggressive hydration. Was seen by psychiatrist diagnosed confirmed of schizophrenia psych medications initiated as described in the consultation note. Patient's rhabdomyolysis has improved and is medically stable for discharge to inpatient psych. 03/29: Patient seen and examined this morning much more awake no acute distress was actually able to articulate the changes in medication especially of Depakote for himself. He is medically stable and cleared for discharge to inpatient psych. Continue Supportive care CPK improved Patient is medically cleared for inpatient psych placement D/c klonopin Start Lorazepam 0.5mg po TID Increase Depakote 500mg po BID Rhabdomyolysis acute Acute metabolic encephalopathy Schizophrenia with paranoia Acute psychosis with hallucination 1013 . Disposition: [id number]/TX-[id number] PSY HOSP/PSY UNIT Time spent for discharge: 35 minutes Core Measure Documentation - Palliative Care Palliative Care/ Comfort Measures: Not Applicable - Core Measures Any of the following diagnoses?: none Exam - Physical Exam Narrative exam: VITAL SIGNS: Reviewed. GENERAL: The patient appears normally developed, more relaxed today. Prior noted disorientation as result vital signs as documented. HEAD: No signs of head trauma. EYES: Pupils are equal. Extraocular motions intact. EARS: Hearing grossly intact. MOUTH: Oropharynx is normal. NECK: No adenopathy, no JVD. CHEST: Chest with clear breath sounds bilaterally. No wheezes, rales, or rhonchi. CARDIAC: Regular rate and rhythm. S1 and S2, without murmurs, gallops, or rubs. VASCULAR: No Edema. Peripheral pulses normal and equal in all extremities. ABDOMEN: Soft, non tender and non distended. No rebound or guarding, and no masses palpated. Bowel Sounds normal. MUSCULOSKELETAL: Good range of motion of all major joints. Extremities without clubbing, cyanosis or edema. NEUROLOGIC EXAM: Awake alert oriented x3 speech is clear follows commands. PSYCHIATRIC: Mood normal. SKIN: detail exam as documented in skin assessment - Constitutional Vitals: Temp Pulse Resp BP Pulse Ox 98.2 F 72 17 113/52 94 03/27/20 04:38 03/27/20 04:38 03/27/20 04:38 03/27/20 04:38 03/27/20 04:38 Plan Activity: advance as tolerated, fall precautions Diet: low fat Special Instructions: record daily weights, record daily BP diary Follow up with: PRIMARY C[facility] Prescriptions: traZODone [Desyrel] 50 mg PO QHS #30 tablet Melatonin [Melatonin 5MG TAB] 5 mg PO QHS PRN #30 tablet PRN Reason: Sleep ARIPiprazole 5 mg PO QDAY #30 tablet LORazepam [Ativan] 0.5 mg PO TID #30 tablet Divalproex [Claribel Aguilera] 500 mg PO BID #30 tablet
[2020-03-27] MEDS: DIVALPROEX DR 125 MG TAB PO SCH (09:40)
[2020-03-27] MEDS: FAMOTIDINE 20 MG/2 ML INJ IV SCH (09:40)
[2020-03-27] MEDS: ARIPiprazole 5 MG TAB PO SCH (09:40)
[2020-03-27] MEDS: SENNOSIDES 8.6 MG TAB PO SCH ×2 (09:41→22:31)
[2020-03-27] MEDS: clonazePAM 0.5 MG TAB PO SCH ×2 (09:41→22:31)
[2020-03-27] MEDS: LORazepam 2 MG/ML VIAL IV PRN (12:47)
--- NOTE | 2020-03-27 13:53 | Progress Note ---
Subjective - Reason for Consult Consult date: 03/27/20 Reason for consult: Si - Chief Complaint Chief complaint: During my interview with the patient, he is lying in bed. He is awake. He's lying flat on his back and never raises up or open his eyes to look at me. He is a/o x 3. A sitter is at bedside. The patient verbalizes "feeling better." But he still expresses "suicidal thoughts." When asking the patient if he has a plan, he places his head up to his head as if in shooting himself. He then makes a sound like a gun. The patient expresses seeing "my grandma and grandpa and my mom." He says "they are graphic images. Their zombies." The patient states, "I usually get better after being on my meds." REVIEW OF SYSTEMS Constitutional: Negative for weight loss ENT: Negative for stridor Respiratory: Negative for cough or hemoptysis All other systems reviewed and are negative MSE Appearance: Wearing appropriate clothing. Behavior: calm and cooperative. Mood: "better" Affect: Congruent with stated mood Thought Process: Goal directed Speech: normal tone, slow pace Thought Content Suicidal: Yes Homicidal: Denies Hallucinations: Auditory Delusions: none elicited Consciousness: alert. Cognition/Memory: Impaired Insight/Judgment: Limited. Diagnoses: Schizophrenia Treatment Plan Increase Abilify 10mg po daily Increase Depakote 250mg po BID Sitter: Defer to primary Medical: Per primary Disposition: Recommend acute inpatient psychiatric treatment Will follow. Thank you for this consult. Mental Status Exam - Vital signs Last Vital Signs Temp 98.2 F 03/27/20 04:38 Pulse 72 03/27/20 04:38 Resp 17 03/27/20 04:38 BP 113/52 03/27/20 04:38 Pulse Ox 96 03/27/20 10:00
[2020-03-27] MEDS: FAMOTIDINE 20 MG TAB PO SCH (22:31)
[2020-03-27] MEDS: traZODone 50 MG TAB PO SCH (22:31)
[2020-03-27] MEDS: DIVALPROEX DR 250 MG TAB PO SCH (22:35)
[2020-03-28] MEDS: SODIUM CHLORIDE 0.9% 1000 ML 1,000 ML IV SCH ×2 (03:40→16:11)
[2020-03-28] MEDS: ARIPiprazole 10 MG TAB PO SCH (09:30)
[2020-03-28] MEDS: clonazePAM 0.5 MG TAB PO SCH (09:30)
[2020-03-28] MEDS: SENNOSIDES 8.6 MG TAB PO SCH ×2 (09:30→21:41)
[2020-03-28] MEDS: FAMOTIDINE 20 MG TAB PO SCH ×2 (09:31→21:41)
[2020-03-28] MEDS: DIVALPROEX DR 250 MG TAB PO SCH (09:31)
--- NOTE | 2020-03-28 11:53 | Progress Note ---
Assessment and Plan Assessment and plan: 34-year-old male who presents to the emergency department via EMS from [facility] for altered mental status. Patient has a history of schizophrenia and developmental delay. He is currently there involuntarily secondary to auditory hallucinations and self-harm. 1 of the staff members for [facility], who is familiar with this patient, is currently at bedside and says that he does have some history with speech difficulty. However when he first arrived a few days ago the patient was much more conversive, ambulatory and "he was even doing some push-ups." Since yesterday, and worse today, the patient has essentially been nonverbal and has not been moving much. The patient does answer some of my questions but is very slow to respond. He is currently a poor historian. CT head iMPRESSION: Negative unenhanced CT of the brain Rhabdomyolysis acute Acute metabolic encephalopathy Schizophrenia with paranoia Acute psychosis with hallucination 1013 Plan Continue Supportive care CPK improved Patient is medically cleared for inpatient psych placement. Decrease NS 75m/hr Continue 1013 Recheck CPK Psych consult NOTED Aggressive resuscitation with fluids DVT and GI prophylaxis Anticipate discharge tomorrow. 03/28: Patient remains clinically stable pending discharge. Sitter continues at bedside. Awaiting inpatient psych History Interval history: Patient seen and examined this morning, no acute distress nursing staff reports tolerating diet. Awaiting discharge Hospitalist Physical - Physical exam Narrative exam: VITAL SIGNS: Reviewed. GENERAL: The patient appears normally developed, clinically stable this morning vital signs as documented. HEAD: No signs of head trauma. EYES: Pupils are equal. Extraocular motions intact. EARS: Hearing grossly intact. MOUTH: Oropharynx is normal. NECK: No adenopathy, no JVD. CHEST: Chest with clear breath sounds bilaterally. No wheezes, rales, or rhonchi. CARDIAC: Regular rate and rhythm. S1 and S2, without murmurs, gallops, or rubs. VASCULAR: No Edema. Peripheral pulses normal and equal in all extremities. ABDOMEN: Soft, non tender and non distended. No rebound or guarding, and no masses palpated. Bowel Sounds normal. MUSCULOSKELETAL: Good range of motion of all major joints. Extremities without clubbing, cyanosis or edema. NEUROLOGIC EXAM: Awake disoriented. Speech remains garbled. PSYCHIATRIC: Mood normal. SKIN: detail exam as documented in skin assessment - Constitutional Vitals: Temp Pulse Resp BP Pulse Ox 98.9 F 82 20 116/63 94 03/28/20 04:14 03/28/20 04:14 03/28/20 04:14 03/28/20 04:14 03/28/20 04:14 Results - Labs CBC & Chem 7: 03/26/20 04:17 03/26/20 04:17 Labs: Laboratory Last Values WBC 8.2 K/mm3 (4.5-11.0) 03/26/20 04:17 RBC 4.44 M/mm3 (3.65-5.03) 03/26/20 04:17 Hgb 13.6 gm/dl (11.8-15.2) 03/26/20 04:17 Hct 38.9 % (35.5-45.6) 03/26/20 04:17 MCV 88 fl (84-94) 03/26/20 04:17 MCH 31 pg (28-32) 03/26/20 04:17 MCHC 35 % (32-34) H 03/26/20 04:17 RDW 12.9 % (13.2-15.2) L 03/26/20 04:17 Plt Count 152 K/mm3 (140-440) 03/26/20 04:17 Lymph % (Auto) 14.9 % (13.4-35.0) 03/26/20 04:17 Yancey % (Auto) 12.3 % (0.0-7.3) H 03/26/20 04:17 Eos % (Auto) 0.0 % (0.0-4.3) 03/26/20 04:17 Baso % (Auto) 0.1 % (0.0-1.8) 03/26/20 04:17 Lymph # 1.2 K/mm3 (1.2-5.4) 03/26/20 04:17 Yancey # 1.0 K/mm3 (0.0-0.8) H 03/26/20 04:17 Eos # 0.0 K/mm3 (0.0-0.4) 03/26/20 04:17 Baso # 0.0 K/mm3 (0.0-0.1) 03/26/20 04:17 Seg Neutrophils % 72.7 % (40.0-70.0) H 03/26/20 04:17 Seg Neutrophils # 5.9 K/mm3 (1.8-7.7) 03/26/20 04:17 Sodium 140 mmol/L (137-145) 03/26/20 04:17 Potassium 3.8 mmol/L (3.6-5.0) 03/26/20 04:17 Chloride 101.4 mmol/L (98-107) 03/26/20 04:17 Carbon Dioxide 25 mmol/L (22-30) 03/26/20 04:17 Anion Gap 17 mmol/L 03/26/20 04:17 BUN 10 mg/dL (9-20) 03/26/20 04:17 Creatinine 0.8 mg/dL (0.8-1.3) 03/26/20 04:17 Estimated GFR > 60 ml/min 03/26/20 04:17 BUN/Creatinine Ratio 13 % 03/26/20 04:17 Glucose 81 mg/dL (75-100) 03/26/20 04:17 Calcium 9.2 mg/dL (8.4-10.2) 03/26/20 04:17 Total Bilirubin 0.60 mg/dL (0.1-1.2) 03/25/20 15:30 AST 141 units/L (5-40) H 03/25/20 15:30 ALT 47 units/L (7-56) 03/25/20 15:30 Alkaline Phosphatase 63 units/L (35-129) 03/25/20 15:30 Ammonia 30.0 umol/L (25-60) 03/25/20 15:30 Total Creatine Kinase 2580 units/L (55-170) H 03/27/20 05:17 Total Protein 6.4 g/dL (6.3-8.2) 03/25/20 15:30 Albumin 4.0 g/dL (3.9-5) 03/25/20 15:30 Albumin/Globulin Ratio 1.7 % 03/25/20 15:30 TSH 2.050 mlU/mL (0.270-4.200) 03/25/20 15:30 Urine Color Yellow (Yellow) 03/25/20 Unknown Urine Turbidity Clear (Clear) 03/25/20 Unknown Urine pH 6.0 (5.0-7.0) 03/25/20 Unknown Ur Specific Ridge 1.009 (1.003-1.030) 03/25/20 Unknown Urine Protein <15 mg/dl mg/dL (Negative) 03/25/20 Unknown Urine Glucose (UA) Neg mg/dL (Negative) 03/25/20 Unknown Urine Ketones 20 mg/dL (Negative) 03/25/20 Unknown Urine Blood Mod (Negative) 03/25/20 Unknown Urine Nitrite Neg (Negative) 03/25/20 Unknown Urine Bilirubin Neg (Negative) 03/25/20 Unknown Urine Urobilinogen < 2.0 mg/dL (<2.0) 03/25/20 Unknown Ur Leukocyte Esterase Neg (Negative) 03/25/20 Unknown Urine WBC (Auto) 1.0 /HPF (0.0-6.0) 03/25/20 Unknown Urine RBC (Auto) < 1.0 /HPF (0.0-6.0) 03/25/20 Unknown U Epithel Cells (Auto) < 1.0 /HPF (0-13.0) 03/25/20 Unknown Urine Opiates Screen Negative 03/25/20 Unknown Urine Methadone Screen Negative 03/25/20 Unknown Ur Barbiturates Screen Negative 03/25/20 Unknown Ur Phencyclidine Scrn Negative 03/25/20 Unknown Ur Amphetamines Screen Negative 03/25/20 Unknown U Benzodiazepines Scrn Negative 03/25/20 Unknown Urine Cocaine Screen Negative 03/25/20 Unknown U Marijuana (THC) Screen Negative 03/25/20 Unknown Drugs of Abuse Note Disclamer 03/25/20 Unknown Plasma/Serum Alcohol < 0.01 % (0-0.07) 03/25/20 15:30 Hardy/IV: Voiding Method Condom Catheter IV Catheter Type [Left Hand] INT / Saline Lock Active Medications - Current Medications Current Medications: Generic Name Dose Route Start Last Admin Trade Name Freq PRN Reason Stop Dose Admin Acetaminophen 650 mg 03/25/20 18:40 Tylenol PO Q4H PRN Pain MILD(1-3)/Fever >100.5/CLEMENT Albuterol 2.5 mg 03/25/20 18:40 Proventil IH Q4HRT PRN Shortness Of Breath Aripiprazole 10 mg 03/28/20 10:00 03/28/20 09:30 Aripiprazole PO 10 mg QDAY LORA Administration Bisacodyl 10 mg 03/25/20 18:40 Dulcolax ME QDAY PRN Constipation unrelieved by MOM Clonazepam 0.25 mg 03/26/20 13:00 03/28/20 09:30 Klonopin PO 0.25 mg BID LORA Administration Divalproex Sodium 250 mg 03/27/20 22:00 03/28/20 09:[address] PO 250 mg BID LORA Administration Famotidine 20 mg 03/27/20 22:00 03/28/20 09:31 Pepcid PO 20 mg BID LORA Administration Sodium Chloride 1,000 mls @ 75 mls/hr 03/26/20 11:30 03/28/20 03:40 Nacl 0.9% 1000 Ml IV 150 mls/hr DIRECT LORA Administration Lorazepam 1 mg 03/25/20 18:43 03/27/20 12:47 Ativan IV 1 mg Q4H PRN Administration Seizures Melatonin 5 mg 03/26/20 12:06 Melatonin PO QHS PRN Sleep Naloxone HCl 0.1 mg 03/25/20 18:40 Naloxone IV Q2MIN PRN Res Rate </= 8 or 02 SAT < 92% Ondansetron HCl 4 mg 03/25/20 18:50 Zofran IV Q4H PRN Nausea And Vomiting Senna 8.6 mg 03/25/20 22:00 03/28/20 09:30 Senokot PO 8.6 mg Q12HR LORA Administration Sodium Chloride 10 ml 03/25/20 22:00 03/28/20 09:31 Sodium Chloride Flush Syringe 10 Ml IV 10 ml BID LORA Administration Sodium Chloride 10 ml 03/25/20 18:40 Sodium Chloride Flush Syringe 10 Ml IV PRN PRN LINE FLUSH Trazodone HCl 50 mg 03/26/20 22:00 03/27/20 22:31 Desyrel PO 50 mg QHS LORA Administration
--- NOTE | 2020-03-28 14:16 | Progress Note ---
Subjective - Reason for Consult Consult date: 03/28/20 Reason for consult: paranoid, catatonic - Chief Complaint Chief complaint: The patient's medical record was reviewed and the patient's progress was discussed with the nursing staff. The nurse note states the patient is alert and oriented x 1 and confused During my interview with the patient, he is lying in bed. He is awake. He's lying flat on his back and never raises up or open his eyes to look at me. He has very minimum movement. He is a/o x 2. A sitter is at bedside. His affect is flat. His speech is slow. He states to me "I feel a little bit better." He says he's been "seeing a lot of images." The patient raises up and looks straight ahead, and raises his arm as if reaching for something. He then swipes his arm across the air. He says, "my family member." The patient states he "feels like dying." The patient states "trazodone is not good for me. It causes shakes." REVIEW OF SYSTEMS Constitutional: Negative for weight loss ENT: Negative for stridor Respiratory: Negative for cough or hemoptysis All other systems reviewed and are negative MSE Appearance: Wearing appropriate clothing. Behavior: Odd. Mood: "better" Affect: Flat Thought Process: Illogical at times Speech: normal tone, slow pace Thought Content Suicidal: Yes Homicidal: Denies Hallucinations: Visual Delusions: none elicited Consciousness: alert. Cognition/Memory: Impaired Insight/Judgment: Limited. Diagnoses: Schizophrenia Treatment Plan D/c klonopin Start Lorazepam 0.5mg po TID Increase Depakote 500mg po BID Sitter: Defer to primary Medical: Per primary Disposition: Recommend acute inpatient psychiatric treatment Will follow. Thank you for this consult. Mental Status Exam - Vital signs Last Vital Signs Temp 99.6 F 03/28/20 12:00 Pulse 81 03/28/20 12:00 Resp 18 03/28/20 12:00 BP 117/60 03/28/20 12:00 Pulse Ox 95 03/28/20 12:00
[2020-03-28] MEDS: LORazepam 0.5 MG TAB PO SCH ×2 (16:12→21:41)
[2020-03-28] MEDS ORDERED: LORazepam 1 MG TAB PO SCH (20:00)
[2020-03-28] MEDS: DIVALPROEX DR 500 MG TAB PO SCH (21:41)
[2020-03-29] MEDS: SODIUM CHLORIDE 0.9% 1000 ML 1,000 ML IV SCH (05:18)
[2020-03-29] MEDS: LORazepam 0.5 MG TAB PO SCH ×2 (08:17→13:52)
[2020-03-29] MEDS: ARIPiprazole 10 MG TAB PO SCH (09:36)
[2020-03-29] MEDS: DIVALPROEX DR 500 MG TAB PO SCH (09:36)
[2020-03-29] MEDS: FAMOTIDINE 20 MG TAB PO SCH (09:36)
[2020-03-29] MEDS: SENNOSIDES 8.6 MG TAB PO SCH (09:36)
[2020-03-29] MEDS ORDERED: LOPERAMIDE 2 MG CAP PO PRN (10:30)
--- NOTE | 2020-03-29 11:11 | Progress Note ---
Subjective - Reason for Consult Consult date: 03/29/20 Reason for consult: paranoia, catatonic - Chief Complaint Chief complaint: The patient's medical record was reviewed and the patient's progress was discussed with the nursing staff. During my interview with the patient, he is lying in bed. He is awake. He's lying flat on his back. He makes poor eye. His affect is flat. He is staring at the ceiling during the entire interview. He has very minimum movement. He is a/o x 2. A sitter is at bedside. His affect is flat. he states that he's "doing okay." he says "the depakote seemed to make my hallucinations less." When asking the patient why does he lay so still, he replies "I feel like I can't get up and I have the shakes." He says, "I was walking and working out about 2 or 3 weeks ago, but I got into a depressive state." The patient states, "I feel so depressed, but I can't cry any more." He says "I miss my mother and I'm always scared." When asking the patient what was he scared of, he replied "the depression." The patient expresses suicidal thoughts, but denies a plan. REVIEW OF SYSTEMS Constitutional: Negative for weight loss ENT: Negative for stridor Respiratory: Negative for cough or hemoptysis All other systems reviewed and are negative MSE Appearance: Wearing appropriate clothing. Behavior: calm and cooperative Mood: "depressed" Affect: Flat Thought Process: Illogical at times Speech: normal tone, slow pace Thought Content Suicidal: Yes Homicidal: Denies Hallucinations: Visual Delusions: none elicited Consciousness: alert. Cognition/Memory: Impaired Insight/Judgment: Limited. Diagnoses: Schizophrenia Treatment Plan Increase Abilify 15mg po daily Sitter: Defer to primary Medical: Per primary Disposition: Recommend acute inpatient psychiatric treatment Will follow. Thank you for this consult. Mental Status Exam - Vital signs Last Vital Signs Temp 98.9 F 03/29/20 05:18 Pulse 64 03/29/20 05:18 Resp 18 03/29/20 05:18 BP 106/45 03/29/20 05:18 Pulse Ox 97 03/29/20 05:18
[2020-03-29 16:20] VITALS: BP 116/50
[2020-03-30] MEDS ORDERED: ARIPiprazole 15 MG TAB PO SCH (10:00)
== END 2020-03-29 18:45 | DRG 557 ==
LOC: ED 14:18 → 3A 17:47 → OBSVTOIN 03-26 10:32 → 3A 03-28 12:05
PROVIDERS: ADMIT Internal Medicine; ATTEND Internal Medicine
DX: M62.82 Rhabdomyolysis (principal); G93.41 Metabolic encephalopathy; F20.0 Paranoid schizophrenia
CPT/HCPCS: 36415; 70450; 80048; 80053; 80307; 80320; 81001; 82140; 82550; 84443; 85025; 93005; 94760; G0378; G0480; J2060; J2270; J2405; J3486; J7030